=== PATIENT | female | born 1945 | race Caucasian/White ===

== ENCOUNTER → 2017-08-07 | Outpatient (CLI) | payer OTHER, MEDICAID ==
[2017-08-07 09:21] LABS: CREATININE 0.81 mg/dL (0.55-1.02)
--- NOTE | 2017-08-07 12:07 | MRI ---
MRI brain without and with contrast Indication: Ataxia, dizziness, difficulty walking. Chiari type 1 malformation Comparison: None Technique: Multiplanar, multi sequence MR images of the brain were obtained without and with IV gadol inium contrast. Findings: There is caudal descent of the cerebellar tonsils 1.6 cm below the foramen magnum, with ass ociated foramina magnum crowding and mild mass effect on the upper cervical cord. No abnormal signal or syrinx identified within the visualized cervical cord. There is no abnormal restricted diffusion to suggest acute or subacute infarct. There is age-appropri ate mild generalized brain atrophy with concomitant ventricular and sulcal enlargement. There is no i ntra-axial mass, mass effect, or abnormal extra-axial collection. There are scattered small T2/FLAIR hyperintense white matter foci, suggestive for microangiopathy. There is a 1.3 x 0.9 cm T1 and T2 hypo intense dural-based extra-axial lesion overlying the posterior left frontal lobe near the vertex demonstrating fairly homogeneous postcontrast enhancement (T1 and T2 axial images 26; postcontrast coronal T1 image 18). Associated dural tail is noted. There is no si gnificant mass effect or edema of the adjacent brain parenchyma. There is mild mucosal thickening of the right frontal and bilateral ethmoid and maxillary sinuses. No sinus fluid level identified. The mastoid air cells are grossly clear. Impression: 1. No acute intracranial abnormality. 2. Chiari type 1 malformation 3. 1.3 cm meningioma overlying the left cerebral convexity. 4. Minimal white matter microangiopathy Reported By:
== END ==
LOC: RAD 08:56
PROVIDERS: ATTEND Nurse Practitioner
DX: R27.0 Ataxia, unspecified (principal); G93.5 Compression of brain
CPT/HCPCS: 36415; 70553; 82565; 84520

== ENCOUNTER → 2017-11-14 | Outpatient (CLI) | payer OTHER, MEDICAID ==
--- NOTE | 2017-11-15 18:28 | MRI ---
MRI SPINE THORACIC WITHOUT CONTRAST CLINICAL HISTORY: 72-year-old male with mid back pain and unsteady gait. COMPARISON: None. TECHNIQUE: Multiplanar, multisequence MRI images of the thoracic spine were obtained prior to and fo llowing the uneventful intravenous administration of contrast. FINDINGS: Study is limited secondary to patient motion. Mild straightening of the thoracic kyphosis as imaged. Alignment is maintained. Vertebral body and in tervertebral disc space height are normal. Vertebral marrow and intervertebral disc signal are normal . Cord signal is normal. There is no evidence of significant neural foraminal stenosis or canal compromise. Mild multilevel costovertebral and costotransverse joint arthropathy. IMPRESSION: 1. Mild multilevel costovertebral and costotransverse joint arthropathy without central canal or neur al foraminal stenosis. Reported By:
== END ==
LOC: RAD 15:08
PROVIDERS: ATTEND Neurological Surgery
DX: M47.14 Other spondylosis with myelopathy, thoracic region (principal)
CPT/HCPCS: 72146